=== PATIENT | male | born 1955 | race Caucasian/White ===

== ENCOUNTER → 2020-04-11 07:42 | Outpatient (CLI) | payer MEDICARE, OTHER, SELFPAY ==
[2020-04-11 08:31] LABS: Hemoglobin A1C% w Est Avg Glu 7.5 % (4.0-6.0)
[2020-04-11 10:12] LABS: Alanine Aminotransferase 53 IU/L (<50); Albumin 4.2 g/dL (3.5-5.0); Albumin Globulin Ratio 1.5 (1.0-2.8); Alkaline Phosphatase 92 U/L (38-126); Aspartate Aminotransferase 51 IU/L (17-59); BUN Creatinine Ratio 17.8 (6-22); Bilirubin Total 0.6 mg/dL (0.2-1.3); Blood Urea Nitrogen 16 mg/dL (9-20); Calcium 9.5 mg/dL (8.4-10.2); Carbon Dioxide 27 mmol/L (22-32); Chloride 100 mmol/L (98-107); Cholesterol 156 mg/dL (140-199); Estimated Glomerular Filt Rate > 60.0 mL/min (>60); Globulin 2.8 g/dL (1.7-4.1); Glucose 151 mg/dL (80-110); HDL Cholesterol 35 mg/dL (40-60); HEMOLYSIS < 15 (0-50); LDL Cholesterol Calculated 74 mg/dL (<100); Potassium 4.4 mmol/L (3.4-5.1); Sodium 138 mmol/L (137-145); Triglycerides 234 mg/dL (35-150)
== END ==
PROVIDERS: Referring Provider Internal Medicine; Visit Provider Internal Medicine
DX: E11.9 Type 2 diabetes mellitus without complications (principal); E78.5 Hyperlipidemia, unspecified
CPT/HCPCS: 36415; 80053; 80061; 83036

== ENCOUNTER → 2020-08-24 08:26 | Outpatient (CLI) | payer MEDICARE, OTHER, SELFPAY ==
--- NOTE | 2020-08-24 08:29 | DI.US.S_ITS ---
PROCEDURE: US ABD AORTA ANEURYSM SCREEN INDICATIONS: Former smoker TECHNIQUE: Real time scanning was performed of the aorta and iliac arteries, with image documentation. COMPARISON: None. FINDINGS: Aorta: Proximal aorta is not visualized. Mid-aorta measures 2.2 x 2.3 cm. Distal aortic diameter is 2.4 x 2.4 cm. Iliac arteries: Right common iliac artery measures 0.9 x 0.9 cm. Left common iliac artery measures 1.0 x 1.0 cm. IMPRESSION: No aneurysmal dilation. Dictated by: Marce Goncalves M.D. on 08/24/2020 at 14:36 Approved by: Marce Goncalves M.D. on 08/24/2020 at 14:41
== END ==
PROVIDERS: PCP Student in an Organized Health Care Education/Training Program; Referring Provider Student in an Organized Health Care Education/Training Program; Visit Provider Student in an Organized Health Care Education/Training Program
DX: Z13.6 Encounter for screening for cardiovascular disorders (principal); Z87.891 Personal history of nicotine dependence
CPT/HCPCS: 76706

== ENCOUNTER → 2020-10-26 07:26 | Outpatient (CLI) | payer MEDICARE, OTHER, SELFPAY ==
[2020-10-26 08:00] LABS: Hemoglobin A1C% w Est Avg Glu 7.2 % (4.0-6.0)
[2020-10-26 08:37] LABS: Prostate Specific Antigen Scrn 0.513 ng/mL (0.1-4.0)
[2020-10-26 08:54] LABS: Creatinine Urine Random 144.8 mg/dL
[2020-10-26 08:58] LABS: Microalbumin Urine Random < 0.6 mg/dL (0-1.6)
== END ==
PROVIDERS: PCP Student in an Organized Health Care Education/Training Program; Referring Provider Student in an Organized Health Care Education/Training Program; Visit Provider Student in an Organized Health Care Education/Training Program
DX: E11.69 Type 2 diabetes mellitus with other specified complication (principal); Z12.5 Encounter for screening for malignant neoplasm of prostate; E66.9 Obesity, unspecified
CPT/HCPCS: 36415; 82043; 82570; 83036; G0103

== ENCOUNTER → 2021-02-27 09:44 | Outpatient (CLI) | payer OTHER, MEDICARE, SELFPAY ==
[2021-02-27 11:23] LABS: BUN Creatinine Ratio 13.8 (6-22); Blood Urea Nitrogen 12 mg/dL (9-20); Calcium 9.3 mg/dL (8.4-10.2); Carbon Dioxide 28 mmol/L (22-32); Chloride 104 mmol/L (98-107); Estimated Glomerular Filt Rate > 60.0 mL/min (>60); Glucose 140 mg/dL (80-110); HEMOLYSIS < 15 (0-50); Potassium 4.5 mmol/L (3.4-5.1); Sodium 142 mmol/L (137-145)
[2021-02-27 11:24] LABS: Hemoglobin A1C% w Est Avg Glu 7.2 % (4.0-6.0)
== END ==
PROVIDERS: PCP Student in an Organized Health Care Education/Training Program; Referring Provider Student in an Organized Health Care Education/Training Program; Visit Provider Student in an Organized Health Care Education/Training Program
DX: E11.9 Type 2 diabetes mellitus without complications (principal); I10 Essential (primary) hypertension
CPT/HCPCS: 36415; 80048; 83036

== ENCOUNTER → 2021-08-16 07:46 | Outpatient (CLI) | payer MEDICARE, OTHER, SELFPAY ==
[2021-08-16 08:51] LABS: Alanine Aminotransferase 58 IU/L (<50); Albumin 4.5 g/dL (3.5-5.0); Albumin Globulin Ratio 1.7 (1.0-2.8); Alkaline Phosphatase 86 U/L (38-126); Aspartate Aminotransferase 61 IU/L (17-59); BUN Creatinine Ratio 14.1 (6-22); Bilirubin Total 0.7 mg/dL (0.2-1.3); Blood Urea Nitrogen 12 mg/dL (9-20); Calcium 9.7 mg/dL (8.4-10.2); Carbon Dioxide 32 mmol/L (22-32); Chloride 97 mmol/L (98-107); Cholesterol 151 mg/dL (140-199); Estimated Glomerular Filt Rate > 60.0 mL/min (>60); Globulin 2.7 g/dL (1.7-4.1); Glucose 136 mg/dL (80-110); HDL Cholesterol 41 mg/dL (40-60); HEMOLYSIS < 15 (0-50); LDL Cholesterol Calculated 71 mg/dL (<100); Sodium 138 mmol/L (137-145); Total Protein 7.2 g/dL (6.3-8.2); Triglycerides 197 mg/dL (35-150)
== END ==
PROVIDERS: PCP Student in an Organized Health Care Education/Training Program; Referring Provider Internal Medicine Cardiovascular Disease; Visit Provider Internal Medicine Cardiovascular Disease
DX: E78.5 Hyperlipidemia, unspecified (principal); E11.9 Type 2 diabetes mellitus without complications
CPT/HCPCS: 36415; 80053; 80061; 83036

== ENCOUNTER → 2021-09-03 13:23 | Outpatient (CLI) | payer MEDICARE, OTHER, SELFPAY ==
[2021-09-03 14:54] LABS: Microalbumin Urine Random 0.6 mg/dL (0-1.6)
[2021-09-03 14:56] LABS: Creatinine Urine Random 99.7 mg/dL
== END ==
PROVIDERS: PCP Student in an Organized Health Care Education/Training Program; Referring Provider Student in an Organized Health Care Education/Training Program; Visit Provider Student in an Organized Health Care Education/Training Program
DX: E11.9 Type 2 diabetes mellitus without complications (principal)
CPT/HCPCS: 82043; 82570

== ENCOUNTER → 2021-10-25 11:19 | Outpatient (CLI) | payer MEDICARE, OTHER, SELFPAY ==
[2021-10-25 12:11] LABS: BUN Creatinine Ratio 13.9 (6-22); Blood Urea Nitrogen 14 mg/dL (9-20); Estimated Glomerular Filt Rate > 60.0 mL/min (>60)
== END ==
PROVIDERS: PCP Student in an Organized Health Care Education/Training Program; Referring Provider Student in an Organized Health Care Education/Training Program; Visit Provider Student in an Organized Health Care Education/Training Program
DX: Z01.818 Encounter for other preprocedural examination (principal)
CPT/HCPCS: 36415; 82565; 84520

== ENCOUNTER → 2021-10-29 08:48 | Outpatient (CLI) | payer MEDICARE, OTHER, SELFPAY ==
--- NOTE | 2021-10-29 09:24 | DI.CT.S_ITS ---
PROCEDURE: CT LUNG LOW DOSE SCREENING INDICATIONS: Survelliance/Annual Screening/Former Smoker TECHNIQUE: Noncontrast 2.0-2.5 mm thick sections acquired from the pulmonary apices to the posterior costophrenic angles. 7 mm thick axial MIP, and 5 mm coronal and sagittal reformats were then acquired. A low radiation dose technique was utilized. COMPARISON: None. FINDINGS: Image quality: Diagnostic, given the low radiation dose technique. Lungs and pleura: Scattered 1-2 mm benign-appearing calcified and noncalcified nodules are seen in both lungs. No acute pulmonary consolidation. No pleural effusion or pneumothorax. Mediastinum: Heart size is normal. No pericardial effusion. Heavy coronary artery calcifications are present. No mediastinal adenopathy by size criteria. Thoracic aorta and central pulmonary arteries are normal in size. Mild aortic atherosclerosis. Esophagus is normal in caliber. No hiatal hernia. Bones and chest wall: No suspicious bony lesions. No vertebral body compression fractures. Degenerative changes are seen in the spine. No axillary or supraclavicular adenopathy by size criteria. Thyroid appears normal. Abdomen: Visualized upper abdomen solid organs and bowel loops appear normal in the absence of contrast. IMPRESSION: 1. Scattered benign-appearing 1-2 mm nodules. No suspicious pulmonary nodule is seen. 2. Coronary artery atherosclerosis. LUNG-RADS category 2: Benign appearance or behavior. Recommend continued annual screening with low-dose chest CT in 12 months. Dictated by: Alfred Turner M.D. on 10/29/2021 at 9:46 Approved by: Alfred Turner M.D. on 10/29/2021 at 9:56
== END ==
PROVIDERS: PCP Student in an Organized Health Care Education/Training Program; Referring Provider Student in an Organized Health Care Education/Training Program; Visit Provider Student in an Organized Health Care Education/Training Program
DX: Z13.83 Encounter for screening for respiratory disorder NEC (principal); Z87.891 Personal history of nicotine dependence; R91.8 Other nonspecific abnormal finding of lung field; I25.10 Atherosclerotic heart disease of native coronary artery without angina pectoris
CPT/HCPCS: 71250

== ENCOUNTER → 2022-02-12 10:30 | Outpatient (CLI) | payer MEDICARE, SELFPAY ==
[2022-02-12 14:13] LABS: Prostate Specific Antigen Scrn 0.698 ng/mL (0.1-4.0)
== END ==
PROVIDERS: PCP Student in an Organized Health Care Education/Training Program; Referring Provider Student in an Organized Health Care Education/Training Program; Visit Provider Student in an Organized Health Care Education/Training Program
DX: E11.9 Type 2 diabetes mellitus without complications (principal); Z12.5 Encounter for screening for malignant neoplasm of prostate
CPT/HCPCS: 36415; 83036; G0103

== ENCOUNTER → 2022-08-26 09:31 | Outpatient (CLI) | payer MEDICARE, SELFPAY ==
[2022-08-26 10:45] LABS: Hemoglobin A1C% w Est Avg Glu 6.4 % (4.0-6.0)
[2022-08-26 11:04] LABS: Cholesterol 158 mg/dL (140-199); HDL Cholesterol 42 mg/dL (40-60); LDL Cholesterol Calculated 79 mg/dL (<100); Triglycerides 184 mg/dL (35-150)
[2022-08-26 11:50] LABS: Vitamin B12 207 pg/mL (239-931)
[2022-08-26 12:47] LABS: Microalbumi Creatinin Ratio Ur 7.4 ug/mg CR (<30); Microalbumin Urine Random 1.2 mg/dL (0-1.6)
== END ==
PROVIDERS: PCP Student in an Organized Health Care Education/Training Program; Referring Provider Student in an Organized Health Care Education/Training Program; Visit Provider Student in an Organized Health Care Education/Training Program
DX: E11.69 Type 2 diabetes mellitus with other specified complication (principal); E11.9 Type 2 diabetes mellitus without complications; E78.5 Hyperlipidemia, unspecified; I10 Essential (primary) hypertension; T38.3X5A Adverse effect of insulin and oral hypoglycemic [antidiabetic] drugs, initial encounter
CPT/HCPCS: 36415; 80061; 82043; 82570; 82607; 83036

== ENCOUNTER → 2022-11-01 08:59 | Outpatient (CLI) | payer MEDICARE, SELFPAY ==
--- NOTE | 2022-11-01 09:00 | DI.CT.S_ITS ---
PROCEDURE: CT CHEST WO CON INDICATIONS: F/u pulmonary nodules; former smoker >30 pack-yr hx TECHNIQUE: Noncontrast 5 mm thick sections acquired from the pulmonary apices to the posterior costophrenic angles. 1 mm lung window, 5 mm thick coronal and sagittal and 7 mm axial MIP reformats were then acquired. For radiation dose reduction, the following was used: automated exposure control, adjustment of mA and/or kV according to patient size. COMPARISON: [facility], CT, CT LUNG LOW DOSE SCREENING, 10/29/2021, 9:18. FINDINGS: Image quality: Good Lungs and pleura: No consolidation or pleural effusion. Small scattered granulomas and areas of scarring, overall similar to prior. Multiple multiple tiny pulmonary nodules are present, none are new or enlarging. None measure over 6 mm. Mediastinum, heart, and esophagus: No hiatal hernia. There are coronary and valvular annular calcifications. No pathologic adenopathy by size criteria. Chest wall and thyroid: Unremarkable Upper abdomen: Limited images without gross abnormality. Bones: Degenerative changes without acute or suspicious osseous abnormality. IMPRESSION: No new or enlarging pulmonary nodules. Stable pulmonary micro nodules are present. Consider continued low-dose CT lung cancer screening if still eligible. Otherwise, follow-up could be obtained in 1 year for high risk patients. Coronary calcifications. Dictated by: Cedric Alatorre M.D. on 11/01/2022 at 8:37 Approved by: Cedric Alatorre M.D. on 11/01/2022 at 8:43
== END ==
PROVIDERS: PCP Student in an Organized Health Care Education/Training Program; Referring Provider Student in an Organized Health Care Education/Training Program; Visit Provider Student in an Organized Health Care Education/Training Program
DX: R91.8 Other nonspecific abnormal finding of lung field (principal); Z87.891 Personal history of nicotine dependence; I25.10 Atherosclerotic heart disease of native coronary artery without angina pectoris
CPT/HCPCS: 71250

== ENCOUNTER → 2022-12-06 09:24 | Outpatient (CLI) | payer MEDICARE, SELFPAY ==
[2022-12-06 11:36] LABS: Hemoglobin A1C% w Est Avg Glu 8.8 % (4.0-6.0)
[2022-12-06 12:29] LABS: Hep C Virus Ab w/Reflex Quant NEGATIVE s/c (NEGATIVE)
== END ==
PROVIDERS: PCP Student in an Organized Health Care Education/Training Program; Referring Provider Student in an Organized Health Care Education/Training Program; Visit Provider Student in an Organized Health Care Education/Training Program
DX: E11.9 Type 2 diabetes mellitus without complications (principal); Z11.59 Encounter for screening for other viral diseases
CPT/HCPCS: 36415; 83036; 86803

== ENCOUNTER → 2023-02-25 07:09 | Outpatient (CLI) | payer MEDICARE, SELFPAY ==
[2023-02-25 09:25] LABS: Prostate Specific Antigen Scrn 0.643 ng/mL (0.1-4.0)
[2023-02-26 00:07] LABS: Labcorp Hemoglobin (Hb) A1c 7.4 % (4.8-5.6)
== END ==
PROVIDERS: PCP Student in an Organized Health Care Education/Training Program; Referring Provider Student in an Organized Health Care Education/Training Program; Visit Provider Student in an Organized Health Care Education/Training Program
DX: Z12.5 Encounter for screening for malignant neoplasm of prostate; E11.9 Type 2 diabetes mellitus without complications
CPT/HCPCS: 36415; 83036; G0103

== ENCOUNTER 2023-03-27 18:48 | Emergency (ER) | payer MEDICARE, SELFPAY ==
[2023-03-27 18:52] VITALS: BP 157/71; PULSE 71; RESP 16; TEMP 37; O2SAT 99; BMI 29.5
--- NOTE | 2023-03-27 18:56 | DI.RAD.S_ITS ---
PROCEDURE: XR TOE LT MIN 2V INDICATIONS: swelling and pain digit 2 and redness TECHNIQUE: Three views of the left 2nd toe(s) acquired. COMPARISON: None. FINDINGS: Bones: No fractures or dislocations. No suspicious bony lesions. Soft tissues: No suspicious soft tissue densities. Moderate small-vessel atherosclerotic calcification. IMPRESSION: 1. No visible fracture or foreign body. Dictated by: Martha Newton M.D. on 03/27/2023 at 20:19 Approved by: Martha Newton M.D. on 03/27/2023 at 20:21
--- NOTE | 2023-03-27 22:30 | ED.EXTPRO ---
HPI - Extremity Problem General Chief complaint: Extremity Problem,Nontraumatic Stated complaint: Left foot toe problems Time Seen by Provider: 03/27/23 22:17 Source: patient Mode of arrival: Wheelchair History of Present Illness HPI Narrative: Patient here for left toe pain and swelling and redness that started this morning and worsened through the day. Patient has history of insulin controlled diabetes. No prior history of gout or toe infections. Blood sugar has been running in the 150s. No fever. No known injury to the toe or foot. Patient has pain to the 2nd toe. Shoe and sock removed. There is redness to the dorsum of the 2nd toe. Related Data Home Medications Medication Instructions Recorded Confirmed budesonide 3 mg 9 mg PO DAILY 07/27/20 03/03/23 capsule,delayed,extended release aspirin 81 mg tablet,delayed 81 mg PO DAILY 09/04/22 03/03/23 release Previous Rx's Medication Instructions Recorded lancets 30 gauge (OneTouch Delica #200 ea 10/19/21 Lancets) blood sugar diagnostic (OneTouch #200 ea 02/12/22 Verio test strips) nebivolol 10 mg tablet 10 mg PO DAILY #90 tabs 09/03/22 glipizide 5 mg tablet, extended 5 mg PO DAILY #90 tabs 12/07/22 release 24 hr atorvastatin 40 mg tablet 40 mg PO DAILY #90 tabs 02/07/23 valsartan 160 1 tab PO DAILY #90 tabs 02/26/23 mg-hydrochlorothiazide 25 mg tablet clonazepam 0.5 mg tablet 0.5 mg PO BEDTIME #30 tabs 03/03/23 metformin 1,000 mg tablet 1,000 mg PO BID #180 tabs 03/14/23 colchicine 0.6 mg tablet 0.6 mg PO DAILY #1 tab 03/27/23 doxycycline monohydrate 100 mg 100 mg PO BID #14 caps 03/27/23 capsule indomethacin 50 mg capsule 50 mg PO TID #10 caps 03/27/23 prednisone 20 mg tablet 40 mg PO DAILY #6 tabs 04/03/23 Allergies Allergy/AdvReac Type Severity Reaction Status Date / Time Sulfa (Sulfonamide Allergy Mild Rash Verified 03/27/23 18:56 Antibiotics) Review of Systems Review of Systems Narrative: GENERAL: negative chills, fatigue, malaise, fever, sweats. HEENT: negative sinus pain, ear pain, sore throat RESPIRATORY: negative dyspnea, cough CARDIOVASCULAR: negative chest pain, palpitations GASTROINTESTINAL: negative nausea, vomiting, abdominal pain : negative dysuria, frequency, hematuria MUSCULOSKELETAL: Positive muscle or bony pain SKIN: negative rash, skin lesions NEUROLOGIC: negative weakness, numbness ROS Unobtainable: All systems reviewed & are unremarkable except as noted in HPI and below Patient History Medical History Anxiety (~1997) Chicken pox (~1960) Colitis (~2017) Coronary artery disease (~1993) Essential hypertension (~1993) Hyperlipidemia associated with type 2 diabetes mellitus PAD (peripheral artery disease) (~2015) Surgical History Anesthesia History of heart artery stent (~09/13/14) History of knee surgery (~03/25/10) Family History Father History of heart disease Hypertension Hyperlipidemia Mother History of heart disease Hyperlipidemia Hypertension Stroke Brother History of heart disease Grandfather History of heart disease Hyperlipidemia Hypertension Grandmother Asthma Grandfather History of heart disease Hyperlipidemia Hypertension Grandmother Diabetes mellitus History of heart disease Hyperlipidemia Hypertension Stroke Social History Smoking Status: Former smoker Smoking Status: Former smoker alcohol intake frequency: 0-2 drinks per day Substance Use Type: does not use Exam Narrative Exam Narrative: GENERAL: in no distress, not toxic not dyspneic HEAD: Normocephalic. EYES: Pupils equal round EXTREMITIES: No gross deformities. Examination left foot is warm soft and pink with strong pedal pulse, no necrotic tissue. No crepitus. There is focal erythema edema of the 2nd toe at the D IP joint. Does not involve the toenail. No necrotic tissue. No proximal lymphangitis or redness or streaking. Strong pedal pulse, light touch intact to foot and toes. Very tender to touch the 2nd toe. NEURO: AOx4. SKIN: Warm and dry PSYCH: Not anxious, is cooperative Initial Vital Signs Initial Vital Signs: Vital Signs Temperature 98.6 F 03/27/23 18:52 Pulse Rate 71 03/27/23 18:52 Respiratory Rate 16 03/27/23 18:52 Blood Pressure 157/71 H 03/27/23 18:52 Pulse Oximetry 99 03/27/23 18:52 Oxygen Delivery Method Room Air 03/27/23 18:52 Course Orders Ordered: Discontinued Medications Colchicine (Colchicine 0.6 Mg Tablet) 0.6 mg PO NOW ONE Stop: 03/27/23 22:29 Last Admin: 03/27/23 22:54 Dose: 0.6 mg Documented By: ERNST Doxycycline Hyclate (Doxycycline Hyclate 100 Mg Tablet) 100 mg PO NOW ONE Stop: 03/27/23 22:30 Last Admin: 03/27/23 22:55 Dose: 100 mg Documented By: ERNST Ketorolac Tromethamine (Ketorolac 30 Mg/Ml Vial) 15 mg IV NOW ONE Stop: 03/27/23 22:28 Last Admin: 03/27/23 22:55 Dose: 15 mg Documented By: ERNST Vital Signs Vital signs: Vital Signs - 8 hr 03/27/23 18:52 Temperature 98.6 F Pulse Rate 71 Respiratory Rate 16 Blood Pressure 157/71 H Pulse Oximetry 99 Oxygen Delivery Method Room Air MDM - Extremity (Nontraumatic) Lab Data 03/27/23 22:40 03/27/23 22:40 Labs: Lab Results 03/27/23 03/27/23 Range/Units 22:40 22:40 WBC 9.7 (4.5-11.0) X10^3/uL RBC 3.82 L (4.5-5.9) X10^6/uL Hgb 11.6 L (13.5-17.5) g/dL Hct 33.9 L (41-53) % MCV 88.8 (80-100) fL MCH 30.4 (26-34) PG MCHC 34.3 (30-36) % RDW 12.9 (11.6-14.8) % Plt Count 169 (150-400) X10^3/uL Neut % (Auto) 59.3 (50-75) % Lymph % (Auto) 22.0 L (25-40) % Florence % (Auto) 10.9 (3-14) % Eos % (Auto) 7.3 H (2-4) % Baso % (Auto) 0.5 (0-2) % Neut # (Auto) 5700 (6421-0340) /uL Lymph # (Auto) 2100 (5426-5872) /uL Florence # (Auto) 1100 H (0-900) /uL Eos # (Auto) 700 H (0-450) /uL Baso # (Auto) 100 (0-100) /uL ESR 24 H (0-15) MM/HR Sodium 136 L (137-145) mmol/L Potassium 4.3 (3.4-5.1) mmol/L Chloride 100 (98-107) mmol/L Carbon Dioxide 26 (22-32) mmol/L BUN 18 (9-20) mg/dL Creatinine 1.29 H (0.66-1.25) mg/dL Estimated GFR > 60 (>60) mL/min BUN/Creatinine Ratio 14.0 (6-22) Glucose 107 (80-110) mg/dL Uric Acid 9.2 H (3.5-8.5) mg/dL Calcium 9.4 (8.4-10.2) mg/dL Total Bilirubin 0.7 (0.2-1.3) mg/dL AST 41 (17-59) IU/L ALT 44 (<50) IU/L Alkaline Phosphatase 113 (38-126) U/L C-Reactive Protein 1.0 (<1.0) mg/dL Total Protein 7.6 (6.3-8.2) g/dL Albumin 4.5 (3.5-5.0) g/dL Globulin 3.1 (1.7-4.1) g/dL Albumin/Globulin Ratio 1.5 (1.0-2.8) Imaging Data Extremity x-ray #1: Radiologist's Impression: [address] [address] XRay Report Signed Patient: Hernan Denny MR#: [id number] : 1955 Acct:[id number] Age/Sex: 67 / M Date of Service: 03/27/23 Loc: ED Accession Number: [id number] ?? Procedure: XR toe LT min 2V Ordering Provider: Vimal Cameron MD PROCEDURE:? XR TOE LT MIN 2V ? INDICATIONS:? swelling and pain digit 2 and redness ? TECHNIQUE:? Three views of the left 2nd toe(s) acquired.? ? COMPARISON:? None. ? FINDINGS:? ? Bones:? No fractures or dislocations.? No suspicious bony lesions.? ? Soft tissues:? No suspicious soft tissue densities.? Moderate small-vessel atherosclerotic calcification. ? IMPRESSION:? ? 1. No visible fracture or foreign body. ? ? ? Dictated by: Martha Newton M.D. on 03/27/2023 at 20:19 ? ? Approved by: Martha Newton M.D. on 03/27/2023 at 20:21 ? [facility] Narrative Medical decision making narrative: Patient here for left toe pain and swelling and redness that started this morning and worsened through the day. Patient has history of insulin controlled diabetes. No prior history of gout or toe infections. Blood sugar has been running in the 150s. No fever. No known injury to the toe or foot. Patient has pain to the 2nd toe. Shoe and sock removed. There is redness to the dorsum of the 2nd toe. After history and exam x-ray of the foot CBC CMP ESR CRP uric acid Toradol doxycycline ordered [facility] CC: Left toe pain Complicating co-morbidities: Diabetes Data collected from: Patient Medical records reviewed: No previous visits here for this complaint Differential considered: Includes but not limited to toe cellulitis gout toe fracture toe sprain Exam documented above, pertinent findings include: Tender erythema edema to the 2nd left toe Lab Test results independently reviewed as above. Pertinent findings: WBC 9.7 sodium 136 potassium 4.3 BUN 18 creatinine 1.29 GFR greater than 60 uric acid 9.2 ESR 24 CRP 1.0 Imaging studies independently reviewed: X-ray left foot no acute process Treatments: Doxycycline Toradol colchicine Re-evaluations: 11:36 p.m.. Patient feels much better after Toradol and colchicine. Reviewed results with patient. Likely developing gout however may have component of cellulitis and agrees for doxycycline to be added to regimen of medications. Return precautions reviewed with him. Patient says he has a primary care Dr. Skinner to follow up with. Nontoxic at discharge. Return precautions reviewed with him. He desires discharge home. Discussion: Appropriate for discharge home. Patient feeling much better after treatment here. Patient may be developing early cellulitis but concomitant gout. Laboratory studies imaging otherwise reassuring. Medications have been started here. Return precautions reviewed with him. He desires discharge home. He does have primary care follow-up resources. Diagnosis: Gout/cellulitis Discharge Plan Departure Patient Disposition: Home Clinical Impression: Cellulitis Gout Qualifiers: Gout site: toe Gout etiology: unspecified cause Chronicity: acute Laterality: left Qualified Code(s): M10.9 - Gout, unspecified Instructions: DI for Cellulitis -- Adult, DI for Gout Activity Restrictions/Additional Instructions: Please see family doctor next week for re-evaluation. Prescription medication has been sent to your pharmacy to continue. At this time antibiotics will be added as you may be developing early cellulitis/skin infection around the toe as well. Information about gout has been sent home with you as well as cellulitis. Be sure to reviewed the information. Return if worse if any questions or concerns. Prescriptions: New indomethacin 50 mg capsule 50 mg PO TID Qty: 10 0RF Rx Instructions: administer with food or milk colchicine 0.6 mg tablet 0.6 mg PO DAILY Qty: 1 0RF doxycycline monohydrate 100 mg capsule 100 mg PO BID Qty: 14 0RF No Action prednisone 20 mg tablet 40 mg PO DAILY Qty: 6 0RF (DME) lancets [OneTouch Delica Lancets] 30 gauge misc See Rx Instructions .Route Qty: 200 6RF Rx Instructions: Use to check blood sugars 1-2x daily. nebivolol 10 mg tablet 10 mg PO DAILY Qty: 90 3RF glipizide 5 mg tablet extended release 24hr 5 mg PO DAILY Qty: 90 1RF atorvastatin 40 mg tablet 40 mg PO DAILY Qty: 90 0RF valsartan-hydrochlorothiazide 160-25 mg tablet 1 tab PO DAILY Qty: 90 1RF metformin 1,000 mg tablet 1,000 mg PO BID Qty: 180 3RF budesonide 3 mg capsule,delayed,extend.release 9 mg PO DAILY (DME) OneTouch Verio test strips Strip See Rx Instructions .Route Qty: 200 6RF Rx Instructions: Use to check blood sugars 1-2x daily. aspirin 81 mg tablet,delayed release (DR/EC) 81 mg PO DAILY clonazepam 0.5 mg tablet 0.5 mg PO BEDTIME Qty: 30 5RF Rx Instructions: administer 30 minutes before bedtime Referrals: Hernan Wynn MD [Primary Care Provider] - Stand Alone Forms: Patient Portal/API
[2023-03-27] MEDS: COLCHICINE 0.6 MG TABLET PO (22:54)
[2023-03-27 22:55] LABS: Add Manual Diff / Slide Review NO; Basophils Absolute Auto 100 /uL (0-100); Basophils Percent Auto 0.5 % (0-2); Eosinophils Absolute Auto 700 /uL (0-450); Eosinophils Percent Auto 7.3 % (2-4); Hematocrit 33.9 % (41-53); Hemoglobin 11.6 g/dL (13.5-17.5); Lymphocytes Absolute Auto 2100 /uL (1100-4500); Mean Corpuscular HGB Conc 34.3 % (30-36); Mean Corpuscular Hemoglobin 30.4 PG (26-34); Mean Corpuscular Volume 88.8 fL (80-100); Monocytes Absolute Auto 1100 /uL (0-900); Monocytes Percent Auto 10.9 % (3-14); Neutrophils Absolute Auto 5700 /uL (1500-7000); Neutrophils Percent Auto 59.3 % (50-75); Platelet Count 169 X10^3/uL (150-400); Red Blood Cell Count 3.82 X10^6/uL (4.5-5.9); Red Cell Distribution Width 12.9 % (11.6-14.8); White Blood Cell Count 9.7 X10^3/uL (4.5-11.0)
[2023-03-27] MEDS: DOXYCYCLINE HYCLATE 100 MG TABLET PO (22:55)
[2023-03-27] MEDS: KETOROLAC 30 MG/ML VIAL 15 MG IV (22:55)
[2023-03-27 23:11] LABS: Alanine Aminotransferase 44 IU/L (<50); Albumin 4.5 g/dL (3.5-5.0); Albumin Globulin Ratio 1.5 (1.0-2.8); Alkaline Phosphatase 113 U/L (38-126); Aspartate Aminotransferase 41 IU/L (17-59); Bilirubin Total 0.7 mg/dL (0.2-1.3); Blood Urea Nitrogen 18 mg/dL (9-20); Calcium 9.4 mg/dL (8.4-10.2); Carbon Dioxide 26 mmol/L (22-32); Chloride 100 mmol/L (98-107); Estimated Glomerular Filt Rate > 60 mL/min (>60); Globulin 3.1 g/dL (1.7-4.1); Glucose 107 mg/dL (80-110); HEMOLYSIS < 15 (0-50); Potassium 4.3 mmol/L (3.4-5.1); Sodium 136 mmol/L (137-145); Total Protein 7.6 g/dL (6.3-8.2); Uric Acid 9.2 mg/dL (3.5-8.5)
[2023-03-27 23:33] LABS: Erythrocyte Sedimentation Rate 24 MM/HR (0-15)
== END 2023-03-27 23:58 | disposition home or self-care (01) ==
PROVIDERS: Emergency Provider Emergency Medicine; PCP Student in an Organized Health Care Education/Training Program
DX: M10.9 Gout, unspecified (principal); L03.032 Cellulitis of left toe
CPT/HCPCS: 36415; 73660; 80053; 84550; 85025; 85651; 86140; 96374; 99284; J1885

== ENCOUNTER 2023-06-03 09:57 | Day surgery (SDC) | payer MEDICARE, SELFPAY ==
--- NOTE | 2023-06-03 | PATH_ITS ---
[facility] Accession Number: [id number] No. of containers..02 Tissue . 01 Material submitted: . PART A: rectum - RECTAL POLYP PART B: colon - TRANSVERSE POLYP X2 . 01 Diagnosis: A. Rectal Polyp, Biopsy: Hyperplastic polyp. . B. Transverse Colon Polyps, Biopsy: Inflammatory polyp, ulcerated. Tubular adenoma. [facility] 06/10/2023 1057 Local . 01 Electronically signed: . Nimco Cuadra MD, Pathologist NPI- [id number] . 01 Gross description: . A. Received in formalin, labeled with the patient's name and rectal polyp, are two pink-dawson biopsies, 0.2 cm and 0.3 cm, submitted entirely in cassette A1. B. Received in formalin, labeled with the patient's name and transverse polyp x2, are three pink-dawson biopsies, 0.2-1.4 cm. The largest has a grossly identifiable resection margin which is inked blue and sectioned. The specimen is submitted entirely in cassette B1. ([id number]) /[facility] 06/07/2023 1601 Local . 01 Pathologist provided ICD-10: D12.8, D12.3, K51.40 . 01 CPT . 829899, 760486 Specimen Comment: A courtesy copy of this report has been sent to [phone] Performed at: 01 [facility] [address] [place] [address], [place], [place] [id number] MD Hernandez Wong MD Phone: [phone]
[2023-06-03 10:24] VITALS: BP 145/76; PULSE 60; RESP 17; TEMP 36.1; O2SAT 99; BMI 28.1
--- NOTE | 2023-06-03 11:27 | P.HP_ITS ---
History of Present Illness History of Present Illness Date Patient Seen: 06/03/23 Time Patient Seen: 11:27 Chief complaint: [facility] Narrative: 67-year-old man here for screening colonoscopy. Personal history of colonic polyps and collagenous colitis. History of frequent bowel movements which is treated with budesonide as needed. No blood per rectum or abdominal pain. No family history of intestinal malignancy. [facility] Medical History Anxiety (~1997) Chicken pox (~1960) Colitis (~2017) Coronary artery disease (~1993) Essential hypertension (~1993) Hyperlipidemia associated with type 2 diabetes mellitus PAD (peripheral artery disease) (~2015) Surgical History Anesthesia History of heart artery stent (~09/13/14) History of knee surgery (~03/25/10) Family History Father History of heart disease Hypertension Hyperlipidemia Mother History of heart disease Hyperlipidemia Hypertension Stroke Brother History of heart disease Grandfather History of heart disease Hyperlipidemia Hypertension Grandmother Asthma Grandfather History of heart disease Hyperlipidemia Hypertension Grandmother Diabetes mellitus History of heart disease Hyperlipidemia Hypertension Stroke Social History household members: spouse Smoking Status: Former smoker alcohol intake: current Meds Home Medications and Allergies Home Medications Medication Instructions Recorded Confirmed Type budesonide 3 mg 9 mg PO DAILY 07/27/20 06/03/23 History capsule,delayed,extended release lancets 30 gauge (OneTouch Delica #200 ea 10/19/21 04/18/23 Rx Lancets) blood sugar diagnostic (OneTouch #200 ea 02/12/22 04/18/23 Rx Verio test strips) aspirin 81 mg tablet,delayed 81 mg PO DAILY 09/04/22 06/03/23 History release clonazepam 0.5 mg tablet 0.5 mg PO BEDTIME #30 tabs 03/03/23 06/03/23 Rx metformin 1,000 mg tablet 1,000 mg PO BID #180 tabs 03/14/23 06/03/23 Rx sodium,potassium,mag sulfates 17.5 See Rx Instructions PO .COMPLEX 04/23/23 06/03/23 Rx gram-3.13 gram-1.6 gram oral soln #354 mL (Suprep Bowel Prep Kit) atorvastatin 40 mg tablet 40 mg PO DAILY #90 tabs 05/02/23 06/03/23 Rx glipizide 5 mg tablet, extended See Rx Instructions .Route 05/05/23 06/03/23 Rx release 24 hr .COMPLEX #100 tabs valsartan 160 See Rx Instructions .Route 05/05/23 06/03/23 Rx mg-hydrochlorothiazide 25 mg tablet .COMPLEX #100 tabs nebivolol 10 mg tablet 10 mg PO DAILY #90 tabs 05/26/23 06/03/23 Rx Allergies Allergy/AdvReac Type Severity Reaction Status Date / Time Sulfa (Sulfonamide Allergy Mild Rash Verified 04/18/23 08:57 Antibiotics) Exam Vital Signs (past 8 hours): - 06/03/23 10:24 Temperature 97 F L Pulse Rate 60 Respiratory Rate 17 Blood Pressure 145/76 H Pulse Oximetry 99 Oxygen Delivery Method Room Air Oxygen Delivery Method Room Air Narrative Exam Narrative: General adult man alert oriented no acute distress Abdomen soft nontender nondistended Assessment & Plan Assessment and plan (1) Personal history of colonic polyps: Status: Acute Assessment & Plan narrative: The patient requires colorectal screening and colonoscopy is recommended. Technical details were discussed. Risks, benefits, alternatives explained. Risks including but not limited to myocardial infarction, aspiration, bleeding, pain, missed lesion, incomplete examination, need for further radiographic studies, colonic perforation, and need for major abdominal surgery were discussed. All questions were answered to their satisfaction, and they are in agreement with this plan.
[2023-06-03 12:05] VITALS: BP 86/46; PULSE 65; RESP 12; TEMP 36.2; O2SAT 98
[2023-06-03 12:09] VITALS: BP 96/57; PULSE 60; RESP 12; O2SAT 98
--- NOTE | 2023-06-03 12:09 | PM.OP.COLON ---
Operative Date/Time/Diagnoses Date of procedure: 06/03/23 Time of procedure: 12:10 Pre-op diagnosis: Personal history of colonic polyps Post-op diagnosis: other (Colonic polyps x3) Procedure & Clinicians Study performed: Colonoscopy and polypectomy Same procedure as scheduled: Yes Indications: Personal history of colonic polyps, colorectal screening Surgeon: Toy Rob Procedure Notes Procedure in detail: The history and physical was performed/updated and the patient is ASA class is 3. The procedure was discussed in detail with the patient. Potential risks complications including infection, bleeding, missed diagnosis, perforation, need for surgery, and were explained. Their questions were answered and informed consent was obtained. Patient was brought to the procedure room and placed standard monitoring equipment. The patient's vital signs were monitored continuously throughout the entire procedure. Prior to starting time-out was performed. The patient was placed in the left lateral recumbent position. Procedural sedation was administered by anesthesia. Examination began with a thorough inspection of the perianal area there was no evidence of fissures, fistulae, external hemorrhoids or cutaneous malignancy. The colonoscopy scope was then placed into the anal canal and was advanced to the cecum, which was identified by the ileocecal valve, the appendiceal orifice and the confluence of the taenia. The scope was then slowly withdrawn examining colon thoroughly in all directions, irrigating it of any residual stool. Rectum-3 mm polyp removed with Jumbo forceps Transverse colon a 3-5 mm polyp removed with biopsy forceps. At 90 cm from the verge there was a pedunculated 1 cm polyp which was removed with cold snare in its entirety. The patient tolerated the procedure well. They will be discharged once criteria are met. The prep was of good/excellent quality. The withdrawl time was 12 minutes. Specimen(s): other (Transverse colon x2, rectal polyp) Complications: none Impression: Colonic polyps x3 Post-procedure Plan for aftercare: Follow-up is dependent on pathology findings Disposition: same day surgery
[2023-06-03 12:14] VITALS: BP 96/57; PULSE 60; RESP 12; O2SAT 98
[2023-06-03 12:15] VITALS: BP 100/60; PULSE 60; RESP 12; O2SAT 98
== END 2023-06-03 12:29 | disposition home or self-care (01) ==
PROVIDERS: PCP Pediatrics; Referring Provider Surgery; Visit Provider Surgery
PROC: 0DJD8ZZ Inspection of Lower Intestinal Tract, Via Natural or Artificial Opening Endoscopic (ICD-10-PCS; CPT 45378; principal; 2023-06-03 11:00)
DX: Z12.11 Encounter for screening for malignant neoplasm of colon (principal); Z86.010 Personal history of colon polyps; K62.1 Rectal polyp; D12.3 Benign neoplasm of transverse colon
CPT/HCPCS: 45385; 45380

== ENCOUNTER → 2023-08-27 08:04 | Outpatient (CLI) | payer MEDICARE, SELFPAY ==
[2023-08-27 09:32] LABS: Add Manual Diff / Slide Review NO; Basophils Absolute Auto 100 /uL (0-100); Basophils Percent Auto 0.8 % (0-2); Eosinophils Absolute Auto 700 /uL (0-450); Eosinophils Percent Auto 7.6 % (2-4); Hemoglobin 12.4 g/dL (13.5-17.5); Lymphocytes Absolute Auto 2300 /uL (1100-4500); Lymphocytes Percent Auto 26.5 % (25-40); Mean Corpuscular HGB Conc 34.5 % (30-36); Mean Corpuscular Hemoglobin 30.4 PG (26-34); Mean Corpuscular Volume 88.1 fL (80-100); Monocytes Absolute Auto 1000 /uL (0-900); Monocytes Percent Auto 11.1 % (3-14); Neutrophils Absolute Auto 4800 /uL (1500-7000); Platelet Count 203 X10^3/uL (150-400); Red Blood Cell Count 4.09 X10^6/uL (4.5-5.9); White Blood Cell Count 8.8 X10^3/uL (4.5-11.0)
[2023-08-27 09:47] LABS: Hemoglobin A1C% w Est Avg Glu 6.6 % (4.0-6.0)
[2023-08-27 09:54] LABS: Alanine Aminotransferase 40 IU/L (<50); Albumin 4.3 g/dL (3.5-5.0); Albumin Globulin Ratio 1.4 (1.0-2.8); Alkaline Phosphatase 80 U/L (38-126); Aspartate Aminotransferase 38 IU/L (17-59); BUN Creatinine Ratio 14.8 (6-22); Bilirubin Total 0.7 mg/dL (0.2-1.3); Blood Urea Nitrogen 16 mg/dL (9-20); Carbon Dioxide 25 mmol/L (22-32); Chloride 96 mmol/L (98-107); Cholesterol 152 mg/dL (140-199); Estimated Glomerular Filt Rate > 60 mL/min (>60); Glucose 157 mg/dL (80-110); HDL Cholesterol 36 mg/dL (40-60); HEMOLYSIS < 15 (0-50); LDL Cholesterol Calculated 79 mg/dL (<100); Potassium 4.9 mmol/L (3.4-5.1); Sodium 133 mmol/L (137-145); Total Protein 7.3 g/dL (6.3-8.2); Triglycerides 184 mg/dL (35-150); Uric Acid 8.6 mg/dL (3.5-8.5)
[2023-08-27 11:15] LABS: Creatinine Urine Random 72.3 mg/dL
[2023-08-27 11:28] LABS: Microalbumin Urine Random < 0.6 mg/dL (0-1.6)
== END ==
PROVIDERS: PCP Family Medicine; Referring Provider Family Medicine; Visit Provider Family Medicine
DX: I10 Essential (primary) hypertension (principal); E11.69 Type 2 diabetes mellitus with other specified complication; E78.5 Hyperlipidemia, unspecified; I73.9 Peripheral vascular disease, unspecified; E11.9 Type 2 diabetes mellitus without complications; Z00.00 Encounter for general adult medical examination without abnormal findings
CPT/HCPCS: 36415; 80053; 80061; 82043; 82570; 83036; 84550; 85025

== ENCOUNTER → 2023-11-27 13:12 | Outpatient (CLI) | payer MEDICARE, SELFPAY ==
--- NOTE | 2023-11-27 13:13 | DI.RAD.S_ITS ---
PROCEDURE: XR SHOULDER RT MIN 2V INDICATIONS: rt shoulder pain TECHNIQUE: 3 views of the shoulder were acquired. COMPARISON: None. FINDINGS: Bones: No fractures or dislocations. Moderate degeneration, osteophytosis, and subcortical cystic change at the acromioclavicular joint. Mild enthesopathy at the coracoclavicular interval. Glenohumeral joint appears intact. No suspicious bony lesions. Visualized ribs appear intact. Soft tissues: No suspicious soft tissue calcifications. IMPRESSION: 1. 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 Dictated by: Martha Newton M.D. on 11/27/2023 at 15:16 Approved by: Martha Newton M.D. on 11/27/2023 at 15:17
== END ==
PROVIDERS: PCP Family Medicine; Referring Provider Family Medicine; Visit Provider Family Medicine
DX: M25.511 Pain in right shoulder (principal)
CPT/HCPCS: 73030

== ENCOUNTER → 2023-12-09 09:45 | Outpatient (CLI) | payer MEDICARE, SELFPAY ==
[2023-12-09 10:58] LABS: Alanine Aminotransferase 51 IU/L (<50); Albumin 4.4 g/dL (3.5-5.0); Albumin Globulin Ratio 1.5 (1.0-2.8); Alkaline Phosphatase 84 U/L (38-126); Aspartate Aminotransferase 42 IU/L (17-59); BUN Creatinine Ratio 21.7 (6-22); Bilirubin Total 0.8 mg/dL (0.2-1.3); Blood Urea Nitrogen 23 mg/dL (9-20); Calcium 9.8 mg/dL (8.4-10.2); Carbon Dioxide 26 mmol/L (22-32); Chloride 101 mmol/L (98-107); Cholesterol 164 mg/dL (140-199); Estimated Glomerular Filt Rate > 60 mL/min (>60); Glucose 162 mg/dL (80-110); HDL Cholesterol 43 mg/dL (40-60); HEMOLYSIS < 15 (0-50); LDL Cholesterol Calculated 82 mg/dL (<100); Potassium 4.6 mmol/L (3.4-5.1); Sodium 137 mmol/L (137-145); Total Protein 7.4 g/dL (6.3-8.2); Triglycerides 193 mg/dL (35-150)
== END ==
PROVIDERS: PCP Family Medicine; Referring Provider Internal Medicine Cardiovascular Disease; Visit Provider Internal Medicine Cardiovascular Disease
DX: I25.10 Atherosclerotic heart disease of native coronary artery without angina pectoris (principal); I51.7 Cardiomegaly; I73.9 Peripheral vascular disease, unspecified
CPT/HCPCS: 36415; 80053; 80061

== ENCOUNTER → 2024-01-01 11:20 | Outpatient (CLI) | payer OTHER, SELFPAY ==
[2024-01-01 11:57] LABS: Hemoglobin A1C% w Est Avg Glu 7.5 % (4.0-6.0)
[2024-01-01 12:41] LABS: Vitamin B12 > 1000 pg/mL (239-931)
== END ==
LOC: LAB 11:25
PROVIDERS: PCP Family Medicine; Referring Provider Family Medicine; Visit Provider Family Medicine
DX: E11.9 Type 2 diabetes mellitus without complications (principal); I10 Essential (primary) hypertension; E11.69 Type 2 diabetes mellitus with other specified complication; E78.5 Hyperlipidemia, unspecified
CPT/HCPCS: 36415; 82607; 83036

== ENCOUNTER → 2024-01-13 09:05 | Outpatient (CLI) | payer OTHER, SELFPAY ==
--- NOTE | 2024-01-13 09:07 | DI.ECHO.S_ITS ---
[place] [facility]---------+ [facility] +---------+ : : [address] : : : : [id number] : : : : Phone: [phone]---------+ Echocardiogram Report + + :Name: ANDREW DANIELLE Study Date: 01/13/2024 Height: 72 in : :[facility] ReadingLocation: Weight: 205 lb : : Gender: Male BSA: 2.2 m2 : :: 1955 Age: 68 yrs BP: 155/87 mmHg: :Reason For Study: CARDIOMEGALY : :Ordering Physician: : :ALETHA ROGERS Performed By: Nerissa Lim : :Referring: ALETHA ROGERS : + + Interpretation Summary The left ventricle is normal in size. The ejection fraction is estimated to be 50-55%. The right ventricle is normal in size and function. No significant valvular pathology seen. The ascending aorta is mildly enlarged. There is aortic root sclerosis/calcification. Procedure: A two-dimensional transthoracic echocardiogram with color flow and Doppler was performed. The study quality was technically adequate. There is no prior echocardiogram noted for this patient. The patient was in sinus rhythm with heart rates between 55-62 bpm during the exam. Left Ventricle: The left ventricle is normal in size. There is mild concentric left ventricular hypertrophy. There is no thrombus. A false chord is noted (normal variant). The ejection fraction is estimated to be 50-55%. There are no focal wall motion abnormalities. MV E/A: 0.77 Med Peak E' Abdoulaye: 4.3 cm/sec E/E' med: 13.0. Right Ventricle: The right ventricle is normal in size and function. Atria: The left atrial size is normal. Right atrial size is normal. There is no Doppler evidence for an interatrial shunt. Mitral Valve: There is mild mitral annular calcification. The mitral valve chordae are thickened and/or calcified. There is trace mitral regurgitation. Aortic Valve: The aortic valve is mildly calcified. The aortic valve is trileaflet. There is no aortic valve stenosis. There is trace aortic regurgitation. Tricuspid Valve: The tricuspid valve is normal. There is trace tricuspid regurgitation. Pulmonary artery pressures cannot be estimated because of the lack of a measurable TR jet velocity. Pulmonic Valve: The pulmonic valve is not well seen, but is grossly normal. There is no pulmonic valvular regurgitation. Great Vessels: The aortic root is normal size. There is aortic root sclerosis/calcification. The ascending aorta is mildly enlarged. The inferior vena cava was not well visualized. Pericardium/ Pleura There is no pericardial effusion. There is no pleural effusion. MMode/2D Measurements & Calculations LVIDd: 4.6 cm LVOT diam: 2.3 cm LVIDs: 3.0 cm Ao root diam: 4.1 cm FS: 35.8 % asc Aorta Diam: 4.0 cm EPSS: 0.88 cm Ao Arch Diam (Prox Trans): 3.0 cm IVSd: 1.2 cm LVPWd: 1.2 cm LV mark. diameter/BSA (cm/m^2): 2.1 LV sys. diameter/BSA (cm/m^2): 1.4 LA A2 area: 19.0 cm2 RA long axis: 5.5 cm LA A4 area: 15.9 cm2 RA area: 15.3 cm2 LA length (vol): 5.6 cm RA vol: 36.2 ml LA vol: 45.3 ml RA : 16.8 ml/m2 LA vol index: 21.1 ml/m2 RVD1 (basal): 3.7 cm RVD2 (mid): 3.1 cm TAPSE: 1.7 cm Doppler Measurements & Calculations Ao V2 max: 146.8 cm/sec LVOT Max Abdoulaye: 90.4 cm/sec Ao V2 mean: 103.3 cm/sec LV V1 max P.3 mmHg Ao max P.6 mmHg LV V1 VTI: 21.7 cm Ao mean P.7 mmHg SARAH BETH(I,D): 2.6 cm2 Ao V2 VTI: 33.0 cm SARAH BETH(V,D): 2.5 cm2 sev ratio: 0.66 SARAH BETH indexed to BSA (cm^2/m^2): 1.2 MV E max abdoulaye: 56.5 cm/sec PA V2 max: 100.5 cm/sec MV A max abdoulaye: 73.0 cm/sec PA V2 mean: 73.3 cm/sec MV E/A: 0.77 PA mean P.4 mmHg Med Peak E' Abdoulaye: 4.3 cm/sec PA pr(Accel): 41.3 mmHg E/E' med: 13.0 Lat Peak E' Abdoulaye: 7.9 cm/sec E/E' lat: 7.1 E/e' average: 10.1 MV dec time: 0.27 sec SVLVOT): 87.3 ml Reading Physician:04:57 PM
--- NOTE | 2024-01-13 09:07 | DI.US.S_ITS ---
PROCEDURE: US ARTERIAL DUPLEX LE BI INDICATIONS: Cardiomegaly;Peripheral vascular disease TECHNIQUE: Color and pulse Doppler interrogation was performed of both lower extremity arterial systems, with image documentation. COMPARISON: None. FINDINGS: Right lower extremity: Common femoral artery: 189 cm/sec, with triphasic flow. Deep femoral artery: 147 cm/sec, with triphasic flow. Proximal superficial femoral artery: 90 cm/sec, with triphasic flow. Mid superficial femoral artery: 85 cm/sec, with triphasic flow. Distal superficial femoral artery: 107 cm/sec, with triphasic flow. Popliteal artery: 73 cm/sec, with triphasic flow. Posterior tibial artery: 67 cm/sec, with try phase flow. Anterior tibial artery/dorsalis pedis: 112 cm/sec, with biphasic flow. Hurtado-scale imaging description: A collateral is noted within the mid right SFA. Although there are predominantly triphasic waveforms throughout and no large change in velocity, findings raise the suspicion for a mild to moderate downstream stenosis of the distal SFA. Left lower extremity: Common femoral artery: 146 cm/sec, with triphasic flow. Deep femoral artery: 92 cm/sec, with triphasic flow. Proximal superficial femoral artery: 76 cm/sec, with biphasic flow. Mid superficial femoral artery: 51 cm/sec, with triphasic flow. Distal superficial femoral artery: 67 cm/sec, with try phase flow. Popliteal artery: 34 cm/sec, with triphasic flow. Posterior tibial artery: 21 cm/sec, with biphasic flow. Anterior tibial artery/dorsalis pedis: 29 cm/sec, with biphasic flow. Hurtado-scale imaging description: Sonographic findings suggesting a stent within the distal SFA which appears patent. Diminished velocities are present within the infrageniculate arteries below the stent. IMPRESSION: 1. Sonographic findings suggesting mild to moderate stenosis of the distal right SFA. 2. Probable distal SFA stent which appears patent with downstream diminished infrageniculate arterial velocities. Dictated by: Sofy Torres M.D. on 01/13/2024 at 12:27 Approved by: Sofy Torres M.D. on 01/13/2024 at 12:31
--- NOTE | 2024-01-13 09:08 | DI.US.S_ITS ---
PROCEDURE: US ABD AORTA ANEURYSM SCREEN INDICATIONS: PERIPHERAL VASCULAR DISEASE TECHNIQUE: Real time scanning was performed of the aorta and iliac arteries, with image documentation. COMPARISON: [facility], , US ABD AORTA ANEURYSM SCREEN, 08/24/2020, 8:39. FINDINGS: This a markedly limited study. Aorta: Proximal aorta is not visualized. Mid-aorta measures 1.3 cm. Distal aorta is not visualized. Iliac arteries: Bilateral iliac arteries are not visualized. The liver is markedly echogenic. IMPRESSION: 1. Markedly limited study due to overlying bowel gas and s dense, echogenic liver. If further characterization is warranted, repeat ultrasound after bowel preparation or CTA of the abdomen is recommended. 2. Markedly increased hepatic echogenicity noted likely related to fatty infiltration of the liver but other sources of hepatocellular disease cannot be excluded. Dictated by: Sofy Torres M.D. on 01/13/2024 at 12:32 Approved by: Sofy Torres M.D. on 01/13/2024 at 12:33
== END ==
PROVIDERS: PCP Family Medicine; Referring Provider Internal Medicine Cardiovascular Disease; Visit Provider Internal Medicine Cardiovascular Disease
DX: I73.9 Peripheral vascular disease, unspecified (principal); I51.7 Cardiomegaly; I34.81 Nonrheumatic mitral (valve) annulus calcification; I77.89 Other specified disorders of arteries and arterioles
CPT/HCPCS: 76706; 93306; 93925

== ENCOUNTER → 2024-01-19 14:50 | Outpatient (CLI) | payer OTHER, SELFPAY ==
[2024-01-19 15:47] LABS: Alanine Aminotransferase 43 IU/L (<50); Albumin 4.5 g/dL (3.5-5.0); Albumin Globulin Ratio 1.5 (1.0-2.8); Alkaline Phosphatase 79 U/L (38-126); Aspartate Aminotransferase 48 IU/L (17-59); BUN Creatinine Ratio 15.7 (6-22); Bilirubin Total 0.6 mg/dL (0.2-1.3); Blood Urea Nitrogen 17 mg/dL (9-20); Calcium 9.6 mg/dL (8.4-10.2); Carbon Dioxide 26 mmol/L (22-32); Chloride 101 mmol/L (98-107); Cholesterol 132 mg/dL (140-199); Estimated Glomerular Filt Rate > 60 mL/min (>60); Globulin 3.1 g/dL (1.7-4.1); Glucose 183 mg/dL (80-110); HDL Cholesterol 36 mg/dL (40-60); HEMOLYSIS < 15 (0-50); LDL Cholesterol Calculated 30 mg/dL (<100); Potassium 4.1 mmol/L (3.4-5.1); Sodium 138 mmol/L (137-145); Total Protein 7.6 g/dL (6.3-8.2); Triglycerides 328 mg/dL (35-150)
== END ==
LOC: LAB 14:53
PROVIDERS: PCP Family Medicine; Referring Provider Internal Medicine Cardiovascular Disease; Visit Provider Internal Medicine Cardiovascular Disease
DX: I25.10 Atherosclerotic heart disease of native coronary artery without angina pectoris (principal); I51.7 Cardiomegaly; I73.9 Peripheral vascular disease, unspecified
CPT/HCPCS: 36415; 80053; 80061

== ENCOUNTER → 2024-02-05 10:56 | Outpatient (CLI) | payer MEDICARE, SELFPAY ==
[2024-02-05 11:51] LABS: BUN Creatinine Ratio 20.5 (6-22); Blood Urea Nitrogen 23 mg/dL (9-20); Calcium 10.4 mg/dL (8.4-10.2); Carbon Dioxide 24 mmol/L (22-32); Chloride 100 mmol/L (98-107); Estimated Glomerular Filt Rate > 60 mL/min (>60); Glucose 177 mg/dL (80-110); HEMOLYSIS < 15 (0-50); Potassium 5.1 mmol/L (3.4-5.1); Sodium 132 mmol/L (137-145)
== END ==
PROVIDERS: PCP Family Medicine; Referring Provider Internal Medicine Interventional Cardiology; Visit Provider Internal Medicine Interventional Cardiology
DX: I73.9 Peripheral vascular disease, unspecified (principal)
CPT/HCPCS: 36415; 80048

== ENCOUNTER → 2024-03-22 08:24 | Outpatient (CLI) | payer MEDICARE, SELFPAY ==
[2024-03-22 09:17] LABS: Hemoglobin A1C% w Est Avg Glu 7.5 % (4.0-6.0)
[2024-03-22 09:26] LABS: Cholesterol 115 mg/dL (140-199); HDL Cholesterol 38 mg/dL (40-60); LDL Cholesterol Calculated 38 mg/dL (<100); Triglycerides 197 mg/dL (35-150)
== END ==
PROVIDERS: PCP Family Medicine; Referring Provider Family Medicine; Visit Provider Family Medicine
DX: E11.69 Type 2 diabetes mellitus with other specified complication (principal); I10 Essential (primary) hypertension; E78.5 Hyperlipidemia, unspecified; E53.8 Deficiency of other specified B group vitamins
CPT/HCPCS: 36415; 80061; 83036

== ENCOUNTER → 2024-04-13 09:16 | Outpatient (CLI) | payer MEDICARE, SELFPAY ==
--- NOTE | 2024-04-13 21:38 | DI.NM.S_ITS ---
DATE OF SERVICE: 04/13/2024 PROCEDURE: Exercise perfusion study. INDICATIONS: The patient has a history of chronically occluded RCA with collaterals and stent to proximal and mid circumflex in 2014 along with PAD, hypertension, hyperlipidemia, and diabetes mellitus. The patient is having resting shortness of breath from last couple of months. Stress test was scheduled for CAD risk score stratification. RADIOPHARMACEUTICAL: 25.7 millicuries technetium-99m Myoview IV was injected at stress and 11.7 millicuries technetium-99m Myoview IV was injected at rest. CARDIAC STRESS: The patient underwent exercise perfusion study under the supervision of an attending staff. The patient walked on Shankar protocol for 6 minutes and 10 seconds, achieved maximum heart rate of 129, which is 85% of target heart rate. Resting blood pressure 120/76 and peak blood pressure 172/80 mmHg. Achieved 7 METS of workload and PILO positive 19%. No chest pain but had significant shortness of breath during exercise. Baseline rhythm sinus with left anterior fascicular block as well as T-wave inversion in inferior leads and leads V5 to V6. During stress, patient developed worsening T-wave inversion and up to 1.[address] depression in inferior leads as well as leads V3 to V6 and at least [address]-elevation in aVR, which overall persisted more than 15 minutes into the recovery with some improvement. No significant arrhythmias. RAW DATA: There is an increased subdiaphragmatic activity. The patient's weight is 212 pounds. GATED STUDY: Resting LV EF 70% and stress LV ejection fraction 65% without any obvious wall motion abnormalities. Resting end-diastolic volume 93 mL. TID ratio 1.0, which is within normal limits. Lung/heart ratio 0.25, which is within normal limits. MYOCARDIAL PERFUSION SCAN: Stress supine, resting supine, and stress prone images were compared to each other. There appears to be predominantly fixed, moderate-size, moderately decreased perfusion of distal inferolateral wall without any significant reversible ischemia. There was also predominantly fixed, small, mildly decreased perfusion of distal anterior septum. No reversibility. 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 Diminished exercise tolerance. Achieved 7 METS of workload. Walked on Shankar protocol for 5 minutes and 30 seconds. PILO positive 19%. No chest pain, however, had significant shortness of breath. Normal hemodynamic response. Baseline abnormal EKG changes with T-wave inversion in the inferolateral leads, which got worsen during exercise as well as up to 1.[address] depression in inferolateral leads and [address] elevation in AVR with very prolonged recovery. His shortness of breath could be angina equivalent. In view of abnormal EKG changes, significant shortness of breath, worthwhile repeating left heart catheterization. Hernan Denny - RONNY/elizabeth/BENJY doc#: [id number]/job#: [id number] dd: 04/13/2024 16:47:00 dt: 04/13/2024 20:11:00 DICTATING MD/COPIES TO: Callie Briscoe MD COPIES MNE: ANDREA;
== END ==
PROVIDERS: PCP Family Medicine; Referring Provider Nurse Practitioner Acute Care; Visit Provider Nurse Practitioner Acute Care
DX: I25.10 Atherosclerotic heart disease of native coronary artery without angina pectoris (principal); R06.02 Shortness of breath; R94.39 Abnormal result of other cardiovascular function study; E11.9 Type 2 diabetes mellitus without complications; I10 Essential (primary) hypertension; E78.5 Hyperlipidemia, unspecified; I73.9 Peripheral vascular disease, unspecified; Z95.5 Presence of coronary angioplasty implant and graft
CPT/HCPCS: 78452; 93017; A9502

== ENCOUNTER → 2024-04-21 10:40 | Outpatient (CLI) | payer MEDICARE, SELFPAY ==
[2024-04-21 12:16] LABS: Add Manual Diff / Slide Review NO; Basophils Absolute Auto 100 /uL (0-100); Basophils Percent Auto 0.7 % (0-2); Eosinophils Absolute Auto 700 /uL (0-450); Eosinophils Percent Auto 8.3 % (2-4); Hematocrit 35.7 % (41-53); Hemoglobin 12.2 g/dL (13.5-17.5); Lymphocytes Absolute Auto 2100 /uL (1100-4500); Mean Corpuscular HGB Conc 34.2 % (30-36); Mean Corpuscular Hemoglobin 29.9 PG (26-34); Mean Corpuscular Volume 87.5 fL (80-100); Monocytes Absolute Auto 900 /uL (0-900); Monocytes Percent Auto 10.1 % (3-14); Neutrophils Absolute Auto 4800 /uL (1500-7000); Neutrophils Percent Auto 55.9 % (50-75); Platelet Count 206 X10^3/uL (150-400); Red Blood Cell Count 4.08 X10^6/uL (4.5-5.9); Red Cell Distribution Width 13.1 % (11.6-14.8); White Blood Cell Count 8.5 X10^3/uL (4.5-11.0)
[2024-04-21 12:42] LABS: BUN Creatinine Ratio 14.8 (6-22); Blood Urea Nitrogen 16 mg/dL (9-20); Calcium 9.5 mg/dL (8.4-10.2); Carbon Dioxide 26 mmol/L (22-32); Chloride 99 mmol/L (98-107); Estimated Glomerular Filt Rate > 60 mL/min (>60); Glucose 159 mg/dL (80-110); HEMOLYSIS < 15 (0-50); Potassium 4.7 mmol/L (3.4-5.1); Sodium 134 mmol/L (137-145)
== END ==
LOC: LAB 10:41
PROVIDERS: PCP Family Medicine; Referring Provider Nurse Practitioner Acute Care; Visit Provider Nurse Practitioner Acute Care
DX: I25.119 Atherosclerotic heart disease of native coronary artery with unspecified angina pectoris (principal)
CPT/HCPCS: 36415; 80048; 85025

== ENCOUNTER → 2024-04-24 09:17 | Outpatient (CLI) | payer MEDICARE, SELFPAY ==
[2024-04-24 11:40] LABS: HEMOLYSIS < 15 (0-50); Iron 71 ug/dL (49-181)
[2024-04-24 11:52] LABS: Percent Iron Saturation 16 % (20-50); Total Iron Binding Capacity 442 ug/dL (261-462); Transferrin 340 mg/dL (206-381)
[2024-04-24 12:12] LABS: TSH w/ Reflex to FT4 2.93 uIU/mL (0.47-4.68)
[2024-04-24 12:18] LABS: Ferritin 25 ng/mL (18-464)
[2024-04-24 12:32] LABS: Vitamin B12 444 pg/mL (239-931)
== END ==
PROVIDERS: PCP Family Medicine; Referring Provider Family Medicine; Visit Provider Family Medicine
DX: E53.8 Deficiency of other specified B group vitamins (principal); D64.9 Anemia, unspecified; R53.83 Other fatigue
CPT/HCPCS: 36415; 82607; 82728; 83540; 83550; 84443

== ENCOUNTER → 2024-07-20 09:44 | Outpatient (CLI) | payer MEDICARE, SELFPAY ==
--- NOTE | 2024-07-20 09:46 | DI.CT.S_ITS ---
PROCEDURE: CT LUNG LOW DOSE SCREENING INDICATIONS: Lung cancer screen, 31.5 pack-year smoking history TECHNIQUE: Noncontrast 2.0-2.5 mm thick sections acquired from the pulmonary apices to the posterior costophrenic angles. 7 mm thick axial MIP, and 5 mm coronal and sagittal reformats were then acquired. For radiation dose reduction, the following was used: automated exposure control, adjustment of mA and/or kV according to patient size. COMPARISON: CT, CT CHEST WO CON, 11/01/2022, 9:06. [facility], CT, CT LUNG LOW DOSE SCREENING, 10/29/2021, 9:18. FINDINGS: Image quality: Diagnostic. Lower Neck: No enlarged lymph nodes. Thyroid: No thyroid nodules which require sonographic follow up, per consensus guidelines. Axillae: No enlarged lymph nodes. Chest Wall: Unremarkable. Bones: Unremarkable. Lungs and Pleura: No pneumothorax or pleural effusions. Scattered punctate pulmonary nodules overall unchanged compared to prior exam. No new nodules. Heart: Heart size is normal. No pericardial effusion. Thoracic Vessels: The aorta and pulmonary arteries demonstrate normal size. Mediastinum and Rosanne: No enlarged lymph nodes. Esophagus: No wall thickening. Minimal hiatal hernia. Upper Abdomen: Visualized upper abdomen solid organs and bowel loops appear normal. IMPRESSION: Stable scattered subcentimeter pulmonary nodules. LUNG-RADS 2; continued annual screening, if eligible. Clinically Significant Non-pulmonary Findings: None. Dictated by: Marce Goncalves M.D. on 07/20/2024 at 17:41 Approved by: Marce Goncalves M.D. on 07/20/2024 at 17:42
[2024-07-20 10:51] LABS: BUN Creatinine Ratio 12.4 (6-22); Blood Urea Nitrogen 12 mg/dL (9-20); Calcium 9.4 mg/dL (8.4-10.2); Carbon Dioxide 25 mmol/L (22-32); Chloride 92 mmol/L (98-107); Cholesterol 102 mg/dL (140-199); Estimated Glomerular Filt Rate > 60 mL/min (>60); Glucose 146 mg/dL (80-110); HDL Cholesterol 37 mg/dL (40-60); HEMOLYSIS < 15 (0-50); LDL Cholesterol Calculated 43 mg/dL (<100); Potassium 4.2 mmol/L (3.4-5.1); Sodium 128 mmol/L (137-145); Triglycerides 108 mg/dL (35-150)
[2024-07-20 11:35] LABS: Hemoglobin A1C% w Est Avg Glu 6.9 % (4.0-6.0)
[2024-07-20 12:41] LABS: Creatinine Urine Random 90.32 mg/dL
[2024-07-20 12:47] LABS: Microalbumin Urine Random < 0.6 mg/dL (0-1.6)
== END ==
PROVIDERS: PCP Family Medicine; Referring Provider Family Medicine; Visit Provider Family Medicine
DX: R91.8 Other nonspecific abnormal finding of lung field (principal); Z87.891 Personal history of nicotine dependence; Z12.2 Encounter for screening for malignant neoplasm of respiratory organs; E11.9 Type 2 diabetes mellitus without complications; I10 Essential (primary) hypertension; E11.69 Type 2 diabetes mellitus with other specified complication; E78.5 Hyperlipidemia, unspecified; I25.10 Atherosclerotic heart disease of native coronary artery without angina pectoris
CPT/HCPCS: 36415; 71271; 80048; 80061; 82043; 82570; 83036

== ENCOUNTER → 2024-12-09 07:50 | Outpatient (CLI) | payer MEDICARE, SELFPAY ==
[2024-12-09 09:03] LABS: Thyroid Stimulating Hormone 3.26 uIU/mL (0.47-4.68)
[2024-12-09 15:04] LABS: Sodium Urine Random 71 mmol/L (30-90)
[2024-12-10 12:40] LABS: Osmolality, Serum 292 mOsmol/kg (280-301)
== END ==
PROVIDERS: PCP Family Medicine; Referring Provider Internal Medicine Cardiovascular Disease; Visit Provider Internal Medicine Cardiovascular Disease
DX: E87.1 Hypo-osmolality and hyponatremia (principal)
CPT/HCPCS: 36415; 83930; 83935; 84300; 84443

== ENCOUNTER → 2024-12-14 14:27 | Outpatient (CLI) | payer MEDICARE, SELFPAY ==
[2024-12-14 15:27] LABS: Alanine Aminotransferase 55 IU/L (<50); Albumin 4.8 g/dL (3.5-5.0); Albumin Globulin Ratio 1.5 (1.0-2.8); Alkaline Phosphatase 76 U/L (38-126); Aspartate Aminotransferase 64 IU/L (17-59); BUN Creatinine Ratio 12.9 (6-22); Bilirubin Total 0.6 mg/dL (0.2-1.3); Blood Urea Nitrogen 16 mg/dL (9-20); Calcium 9.4 mg/dL (8.4-10.2); Carbon Dioxide 25 mmol/L (22-32); Chloride 97 mmol/L (98-107); Estimated Glomerular Filt Rate > 60 mL/min (>60); Globulin 3.1 g/dL (1.7-4.1); Glucose 143 mg/dL (80-110); HEMOLYSIS < 15 (0-50); Potassium 4.3 mmol/L (3.4-5.1); Sodium 136 mmol/L (137-145); Total Protein 7.9 g/dL (6.3-8.2)
[2024-12-15 14:08] LABS: Osmolality, Serum 286 mOsmol/kg (280-301)
== END ==
PROVIDERS: PCP Family Medicine; Referring Provider Internal Medicine Cardiovascular Disease; Visit Provider Internal Medicine Cardiovascular Disease
DX: E87.1 Hypo-osmolality and hyponatremia (principal); E78.5 Hyperlipidemia, unspecified
CPT/HCPCS: 36415; 80053; 83930

== ENCOUNTER → 2025-01-19 09:16 | Outpatient (CLI) | payer MEDICARE, SELFPAY ==
[2025-01-19 09:53] LABS: Add Manual Diff / Slide Review NO; Basophils Absolute Auto 100 /uL (0-100); Basophils Percent Auto 0.8 % (0-2); Eosinophils Absolute Auto 500 /uL (0-450); Eosinophils Percent Auto 6.1 % (2-4); Hematocrit 36.7 % (41-53); Hemoglobin 12.6 g/dL (13.5-17.5); Lymphocytes Absolute Auto 2100 /uL (1100-4500); Lymphocytes Percent Auto 25.4 % (25-40); Mean Corpuscular HGB Conc 34.2 % (30-36); Mean Corpuscular Hemoglobin 29.5 PG (26-34); Mean Corpuscular Volume 86.1 fL (80-100); Monocytes Absolute Auto 700 /uL (0-900); Neutrophils Absolute Auto 4800 /uL (1500-7000); Neutrophils Percent Auto 58.7 % (50-75); Platelet Count 211 X10^3/uL (150-400); Red Blood Cell Count 4.26 X10^6/uL (4.5-5.9); Red Cell Distribution Width 12.6 % (11.6-14.8); White Blood Cell Count 8.2 X10^3/uL (4.5-11.0)
[2025-01-19 10:01] LABS: Hemoglobin A1C% w Est Avg Glu 6.9 % (4.0-6.0)
[2025-01-19 10:11] LABS: Cholesterol 108 mg/dL (140-199); HDL Cholesterol 30 mg/dL (40-60); LDL Cholesterol Calculated 36 mg/dL (<100); Triglycerides 211 mg/dL (35-150)
[2025-01-19 10:45] LABS: Prostate Specific Antigen Scrn 0.569 ng/mL (0.1-4.0)
== END ==
PROVIDERS: PCP Family Medicine; Referring Provider Family Medicine; Visit Provider Family Medicine
DX: E87.1 Hypo-osmolality and hyponatremia (principal); Z12.5 Encounter for screening for malignant neoplasm of prostate; I10 Essential (primary) hypertension; E11.69 Type 2 diabetes mellitus with other specified complication; E78.5 Hyperlipidemia, unspecified; D64.9 Anemia, unspecified; I25.10 Atherosclerotic heart disease of native coronary artery without angina pectoris
CPT/HCPCS: 36415; 80061; 83036; 85025; G0103

== ENCOUNTER → 2025-04-21 08:50 | Outpatient (CLI) | payer MEDICARE, SELFPAY ==
[2025-04-21 10:02] LABS: Hematocrit 36.7 % (41-53); Hemoglobin 12.5 g/dL (13.5-17.5); Mean Corpuscular HGB Conc 34.2 % (30-36); Mean Corpuscular Volume 87.7 fL (80-100); Platelet Count 186 X10^3/uL (150-400); Red Blood Cell Count 4.18 X10^6/uL (4.5-5.9); Red Cell Distribution Width 13.5 % (11.6-14.8); White Blood Cell Count 8.5 X10^3/uL (4.5-11.0)
[2025-04-21 10:06] LABS: Hemoglobin A1C% w Est Avg Glu 6.9 % (4.0-6.0)
[2025-04-21 10:44] LABS: HEMOLYSIS < 15 (0-50); Iron 70 ug/dL (49-181)
[2025-04-21 10:55] LABS: Percent Iron Saturation 16 % (20-50); Total Iron Binding Capacity 450 ug/dL (261-462); Transferrin 382 mg/dL (206-381)
[2025-04-21 11:27] LABS: Ferritin 20 ng/mL (18-464)
== END ==
PROVIDERS: PCP Family Medicine; Referring Provider Family Medicine; Visit Provider Family Medicine
DX: E11.42 Type 2 diabetes mellitus with diabetic polyneuropathy (principal); D64.9 Anemia, unspecified
CPT/HCPCS: 36415; 82728; 83036; 83540; 83550; 85027

== ENCOUNTER → 2025-06-22 07:11 | Outpatient (CLI) | payer MEDICARE, SELFPAY ==
[2025-06-22 08:28] LABS: Alanine Aminotransferase 47 IU/L (<50); Albumin 4.7 g/dL (3.5-5.0); Albumin Globulin Ratio 1.8 (1.0-2.8); Alkaline Phosphatase 77 U/L (38-126); Blood Urea Nitrogen 16 mg/dL (9-20); Calcium 9.6 mg/dL (8.4-10.2); Carbon Dioxide 25 mmol/L (22-32); Chloride 94 mmol/L (98-107); Cholesterol 119 mg/dL (140-199); Estimated Glomerular Filt Rate > 60 mL/min (>60); Globulin 2.6 g/dL (1.7-4.1); Glucose 144 mg/dL (70-99); HDL Cholesterol 36 mg/dL (40-60); HEMOLYSIS < 15 (0-50); Potassium 4.4 mmol/L (3.4-5.1); Sodium 133 mmol/L (137-145); Total Protein 7.3 g/dL (6.3-8.2); Triglycerides 184 mg/dL (35-150)
== END ==
PROVIDERS: PCP Family Medicine; Referring Provider Internal Medicine Cardiovascular Disease; Visit Provider Internal Medicine Cardiovascular Disease
DX: E78.5 Hyperlipidemia, unspecified (principal)
CPT/HCPCS: 36415; 80053; 80061

== ENCOUNTER → 2025-07-25 07:22 | Outpatient (CLI) | payer MEDICARE, SELFPAY ==
[2025-07-25 07:39] LABS: Hematocrit 36.0 % (41-53); Hemoglobin 12.2 g/dL (13.5-17.5); Mean Corpuscular HGB Conc 34.0 % (30-36); Mean Corpuscular Hemoglobin 29.3 PG (26-34); Mean Corpuscular Volume 86.3 fL (80-100); Platelet Count 190 X10^3/uL (150-400)
[2025-07-25 07:47] LABS: Hemoglobin A1C% w Est Avg Glu 7.4 % (4.0-6.0)
[2025-07-25 07:52] LABS: HEMOLYSIS < 15 (0-50)
[2025-07-25 08:02] LABS: Alanine Aminotransferase 47 IU/L (<50); Albumin 4.5 g/dL (3.5-5.0); Albumin Globulin Ratio 1.7 (1.0-2.8); Alkaline Phosphatase 84 U/L (38-126); Blood Urea Nitrogen 14 mg/dL (9-20); Calcium 9.4 mg/dL (8.4-10.2); Carbon Dioxide 25 mmol/L (22-32); Chloride 97 mmol/L (98-107); Cholesterol 107 mg/dL (140-199); Estimated Glomerular Filt Rate > 60 mL/min (>60); Globulin 2.6 g/dL (1.7-4.1); Glucose 184 mg/dL (70-99); HDL Cholesterol 36 mg/dL (40-60); HEMOLYSIS < 15 (0-50); Potassium 4.1 mmol/L (3.4-5.1); Sodium 135 mmol/L (137-145); Total Protein 7.1 g/dL (6.3-8.2); Triglycerides 194 mg/dL (35-150)
[2025-07-25 08:10] LABS: Total Iron Binding Capacity 442 ug/dL (261-462); Transferrin 363 mg/dL (206-381)
[2025-07-25 08:35] LABS: Ferritin 24 ng/mL (18-464)
[2025-07-27 14:38] LABS: Iron 82 ug/dL (49-181); Percent Iron Saturation 19 % (20-50)
== END ==
PROVIDERS: PCP Family Medicine; Referring Provider Physician Assistant; Visit Provider Physician Assistant
DX: E11.42 Type 2 diabetes mellitus with diabetic polyneuropathy (principal); I10 Essential (primary) hypertension; E11.9 Type 2 diabetes mellitus without complications; D64.9 Anemia, unspecified
CPT/HCPCS: 36415; 80053; 80061; 82043; 82570; 82728; 83036; 83540; 83550; 85027